=== PATIENT | male | born 1955 | race Caucasian/White ===

== ENCOUNTER 2022-07-14 15:43 | Outpatient (CLI) | payer OTHER, SELFPAY ==
[2022-07-14 14:43] LABS: Chloride* 105 mmol/L (96-114); Sodium* 139 mmol/L (135-149)
[2022-07-14 14:44] LABS: Potassium* 4.6 mmol/L (3.6-5.1)
[2022-07-14 14:45] LABS: Cholesterol* 151 mg/dL (90-199)
[2022-07-14 14:46] LABS: Alkaline Phosphatase* 72 U/L (40-150); Aspartate Amino Transferase* 36 U/L (12-35); Bilirubin Total* 0.8 mg/dL (0.1-1.5); Blood Urea Nitrogen* 20 mg/dL (7-30); Carbon Dioxide* 30 mmol/L (20-32); Estimated Glomerular Filt Rate 83 ml/min; Glucose* 101 mg/dL (60-115); Total Protein* 6.6 g/dL (6.0-8.3)
[2022-07-14 14:47] LABS: Alanine Aminotransferase* 37 U/L (4-50); HDL Cholesterol* 45 mg/dL (>=40); LDL Cholesterol Calculated 95 mg/dL (<100); Triglycerides* 54 mg/dL (40-149)
[2022-07-14 15:20] LABS: PSA Screen* 1.86 ng/mL (0.10-4.00)
== END 2022-07-14 15:44 | disposition home or self-care (01) ==
PROVIDERS: PCP Family Medicine; Visit Provider Family Medicine
DX: Z00.00 Encounter for general adult medical examination without abnormal findings (principal); E78.5 Hyperlipidemia, unspecified; Z12.5 Encounter for screening for malignant neoplasm of prostate
CPT/HCPCS: 80053; 80061; 84153

== ENCOUNTER 2022-12-08 08:02 | Outpatient (CLI) | payer OTHER, SELFPAY | END 2022-12-08 08:03 | disposition home or self-care (01) | LOC: NFLDREF 17:00 | PROVIDERS: PCP Family Medicine; Referring Provider Family Medicine; Visit Provider Family Medicine | DX: Z13.6 Encounter for screening for cardiovascular disorders (principal) | CPT/HCPCS: 80053; 80061 ==

== ENCOUNTER 2024-02-26 15:12 | Outpatient (CLI) | payer OTHER, SELFPAY | END 2024-02-26 15:13 | disposition home or self-care (01) | PROVIDERS: Visit Provider Family Medicine | DX: Z00.00 Encounter for general adult medical examination without abnormal findings (principal); R31.9 Hematuria, unspecified; Z12.5 Encounter for screening for malignant neoplasm of prostate | CPT/HCPCS: 80053; 82550; G0103 ==

== ENCOUNTER 2024-03-04 15:49 | Outpatient (CLI) | payer OTHER, SELFPAY ==
--- NOTE | 2024-03-04 16:00 | CRLHL7_ITS ---
For Patients: As a result of the Century Cures Act, medical imaging exams and procedure reports are released immediately into your electronic medical record. You may view this report before your referring provider. If you have questions, please contact your health care provider. INDICATION: Hematuria TECHNIQUE: CT abdomen and pelvis with and without contrast. One hundred mL of contrast COMPARISON: None. FINDINGS: Lower chest: Unremarkable. Liver: Normal in size and attenuation. No suspicious masses. Gallbladder and bile ducts: No stones or inflammation. No biliary dilatation. Pancreas: Unremarkable. No mass or inflammation. Spleen: Normal in size. No masses. Adrenal glands: Normal in size. No nodules. Kidneys: No renal calculi no hydronephrosis. No suspicious filling defects in the opacified collecting systems, ureters or urinary bladder. Diffuse mild wall thickening urinary bladder which is distended. Two small to characterize low-attenuation lesions both kidneys. GI tract: Unremarkable. Normal in caliber. No sign of mass or inflammation. Normal appendix. Vasculature: Abdominal aorta is normal in caliber. Lymph nodes: No lymphadenopathy. Peritoneum/Abdominal Wall: Unremarkable. No sign of mass or infiltration. No free air or significant free fluid. Pelvis: Enlarged heterogeneous prostate gland Bones: L1 sclerotic lesion and punctate sclerotic focus L4 are nonspecific these could represent bone islands in the absence of known malignancy. IMPRESSION: 1. Urinary tract appears unremarkable diffuse mild wall thickening of the urinary bladder which is incompletely distended. Marked enlargement of the prostate gland. Please note that all CT scans at this facility use dose modulation, iterative reconstruction, and/or weight-based dosing when appropriate to reduce radiation dose to as low as reasonably achievable. Dictated by Qi Berrios MD @ 03/05/2024 6:00:18 AM (Electronically Signed)
== END 2024-03-04 15:50 | disposition home or self-care (01) ==
LOC: CT 15:50
PROVIDERS: PCP Family Medicine; Visit Provider Family Medicine
DX: R31.9 Hematuria, unspecified (principal); N40.0 Benign prostatic hyperplasia without lower urinary tract symptoms
CPT/HCPCS: 74178; Q9967

== ENCOUNTER 2024-12-07 08:29 | Outpatient (CLI) | payer OTHER, SELFPAY | END 2024-12-07 08:30 | disposition home or self-care (01) | PROVIDERS: PCP Family Medicine; Visit Provider Registered Nurse | DX: Z00.00 Encounter for general adult medical examination without abnormal findings (principal); E78.5 Hyperlipidemia, unspecified; Z12.5 Encounter for screening for malignant neoplasm of prostate | CPT/HCPCS: 80048; 80061; G0103 ==